=== PATIENT | male | born 1950 | race Caucasian/White ===

== ENCOUNTER 2020-01-31 15:07 | Inpatient (IN) | payer OTHER, MEDICARE ==
[~2020-01-31] VITALS: Ht 190.5 cm; Wt 118.5 kg
[2020-01-31] VITALS (120 sets, daily range): BP systolic 168; BP diastolic 101; PULSE 63; TEMP 97.7; O2SAT 92–98
[2020-01-31 15:34] LABS: BASO # 0.1 (0.0-0.2); BASO % 0.6 % (0.0-2.0); EOS # 0.2 (0.0-0.7); EOS % 2.8 % (0-4.0); GRAN # 4.6 (1.4-6.5); GRAN % 59.3 % (42.2-75.2); HEMATOCRIT 46.8 % (42.0-52.0); HEMOGLOBIN 15.7 g/dl (13.5-18.0); LYMPH # 2.1 (1.2-3.4); LYMPH % 27.2 % (20.0-51.0); MEAN CELL VOLUME 87 fl (80.0-100.0); MEAN CORPUSCULAR HEMOGLOBIN 29 pg (27.0-31.0); MEAN CORPUSCULAR HGB CONC 34 g/dl (33.0-37.0); MEAN PLATELET VOLUME 11.1 fl (7.4-10.4); MONO # 0.8 (0.1-0.6); MONO % 9.8 % (1.7-9.3); PLATELET COUNT 205 K/mm3 (130-400); RED BLOOD COUNT 5.41 M/mm3 (4.20-5.60); REDCELL DISTRIBUTION WIDTH-CV 13.9 % (11.5-14.5)
[2020-01-31 15:48] LABS: ALANINE AMINOTRANSFERASE 26 U/L (4-49); ALBUMIN 4.4 gm/dL (3.5-5.0); ALKALINE PHOSPHATASE 124 U/L (50-136); ANION GAP 8 mmol/L (7-16); AST,SGOT 32 U/L (15-37); BILIRUBIN,TOTAL 0.7 mg/dL (0.0-1.0); BLOOD UREA NITROGEN 20 mg/dL (9-20); CALCIUM 9.1 mg/dL (8.4-10.2); CARBON DIOXIDE 25 mmol/L (22-30); CHLORIDE 107 mmol/L (98-107); GLUCOSE 152 mg/dL (74-106); POTASSIUM 3.9 mmol/L (3.4-5.0); SODIUM 140 mmol/L (137-145); TOTAL PROTEIN 7.8 gm/dL (6.4-8.2)
[2020-01-31 15:50] LABS: C-REACTIVE PROTEIN < 0.5 mg/dL (0.0-0.9)
[2020-01-31 16:02] LABS: TROPONIN-I < 0.012 ng/mL (0.000-0.035)
--- NOTE | 2020-01-31 18:20 | NUR ---
Pt arrived to room via gurradha from [employer]. Pt alert and oreinted at time of arrival. BP lower and Cardene gtt stopped, see documenation from ER. BP on arrival 168/101 HR63, pt states that he is dizzy during transfer. Pt educated on use of call light at this time, states understadning. Oriented to room and surroundings at this time. Denies further needs.
[2020-01-31] MEDS ORDERED: TENORMIN100 MG PO (22:58)
[2020-01-31] MEDS ORDERED: HYTRIN10 M1 PO (22:59)
[2020-01-31] MEDS ORDERED: CATAPRES 0.1MG0.1 MG PO (22:59)
[2020-01-31] MEDS ORDERED: ZYLOPRIM 300MG300 MG PO (23:00)
[2020-01-31] MEDS ORDERED: ASPIRIN 32325 MG/TAB PO (23:00)
[2020-02-01] VITALS (377 sets, daily range): BP systolic 121–174; BP diastolic 61–104; PULSE 47–60; TEMP 97.7–98.5; O2SAT 91–99
[2020-02-01 05:46] LABS: BASO # 0.1 (0.0-0.2); BASO % 0.6 % (0.0-2.0); EOS # 0.2 (0.0-0.7); EOS % 1.8 % (0-4.0); GRAN # 6.6 (1.4-6.5); GRAN % 67.8 % (42.2-75.2); HEMATOCRIT 45.1 % (42.0-52.0); HEMOGLOBIN 15.1 g/dl (13.5-18.0); LYMPH # 1.9 (1.2-3.4); LYMPH % 19.7 % (20.0-51.0); MEAN CELL VOLUME 86 fl (80.0-100.0); MEAN CORPUSCULAR HEMOGLOBIN 29 pg (27.0-31.0); MEAN CORPUSCULAR HGB CONC 34 g/dl (33.0-37.0); MEAN PLATELET VOLUME 10.9 fl (7.4-10.4); MONO % 9.9 % (1.7-9.3); PLATELET COUNT 193 K/mm3 (130-400); RED BLOOD COUNT 5.23 M/mm3 (4.20-5.60); REDCELL DISTRIBUTION WIDTH-CV 14.1 % (11.5-14.5)
[2020-02-01 05:55] LABS: CALCIUM 8.9 mg/dL (8.4-10.2); CREATININE, serum 0.94 (0.66-1.25)
--- NOTE | 2020-02-01 13:22 | NUR ---
Chaplain holguin and offered spport with patient.
--- NOTE | 2020-02-01 17:16 | NUR ---
Recieved report from julio cesar NICHOLS. Patient oriented to new room. Completed a med rec and an assessment. Patient complained of dizziness when transferring from the wheelchair to the bed. Instructed patient to call if he needed to get up. is at bedside.
--- NOTE | 2020-02-01 18:51 | NUR ---
Patient did well with dinner, ready for for bed. will report off to night nurse.
[2020-02-02] VITALS: BP 158/90; PULSE 51; TEMP 97.8
[2020-02-02 04:00] VITALS: BP 183/87; PULSE 58; TEMP 97.8
--- NOTE | 2020-02-02 06:19 | NUR ---
RESTING QUIETLY/SLEEPING. HEART RATE HAS REMAINED IN 50-60's MOST OF THE NIGHT. NO PRN HYDRALAZINE REQUIRED. PT STATES HE STILL GETS A BIT DIZZY WHEN UP.
[2020-02-02 07:08] VITALS: BP 169/91; PULSE 50; TEMP 98.2
[2020-02-02 09:24] VITALS: BP 178/98
--- NOTE | 2020-02-02 09:24 | NUR ---
Orthostatic BPs obtained. Lying 178/98 P56. Sitting 176/72 P55. Standing 190/98 P67.
--- NOTE | 2020-02-02 09:30 | NUR ---
Patient alert and oriented, answers questions appropriately. See assessment. Blood pressures reviewed. Patient c/o vertigo with standing from lying or sitting position. Reviewed with patient to sit for up to one minute prior to standing. Offered SORAYA hose to patient, refused at this time. No c/o at this time.
--- NOTE | 2020-02-02 11:02 | NUR ---
SW met with patient to complete intake. Patient states that he lives with his [phone]. Patient states that he does not use DME and is independent with ADL's. Patient provides that his PCP is Dr. Henderson, [facility] and that he can afford his medication at this time. Patient provides that he does not have anyone listed as DPOA-HC and does not wish to appoint anyone at this time. His plan is to return to his home with his upon DC and does not have any concerns with doing so. [facility]SUF will continue to follow.
[2020-02-02 11:22] VITALS: BP 156/86; PULSE 50; TEMP 98.5
[2020-02-02] MEDS ORDERED: PRINIVIL20 MG PO (15:52)
--- NOTE | 2020-02-02 16:10 | NUR ---
Dr Taylor here to see patient.
--- NOTE | 2020-02-02 16:45 | NUR ---
Discharge instructions reviewed with patient, verbalized understanding. Discharged via wheelchair to auto/home with spouse at 1630.
== END 2020-02-02 16:30 | disposition home or self-care (01) | DRG 305 ==
LOC: COL.ER 15:07 → ICU 18:40 → SURG 02-01 16:23
PROVIDERS: Emergency Medicine; Nurse Practitioner Primary Care; ADMIT Internal Medicine
DX: I16.1 Hypertensive emergency (principal); I10 Essential (primary) hypertension; N40.0 Benign prostatic hyperplasia without lower urinary tract symptoms; R00.1 Bradycardia, unspecified; T44.7X5A Adverse effect of beta-adrenoreceptor antagonists, initial encounter
CPT/HCPCS: 99222-AI; 99239; A9585; J2060; J2405; J7030; J7050

== ENCOUNTER 2020-12-25 21:10 | Emergency (ER) | payer MEDICARE, OTHER ==
[~2020-12-25] VITALS: Ht 190.5 cm; Wt 113.6 kg
[~2020-12-25 21:10] MED LIST: ASPIRIN 32325 MG/TAB PO; CATAPRES 0.1MG0.1 MG PO; HYTRIN10 M1 PO; PRINIVIL20 MG PO; TENORMIN100 MG PO; ZYLOPRIM 300MG300 MG PO
[2020-12-25 21:18] VITALS: TEMP 99
[2020-12-25 21:51] LABS: GRAN # 5.6 (1.4-6.5); GRAN % 89.4 % (42.2-75.2); HEMATOCRIT 41.6 % (42.0-52.0); HEMOGLOBIN 14.4 g/dl (13.5-18.0); LYMPH # 0.3 (1.2-3.4); MEAN CELL VOLUME 83 fl (80.0-100.0); MEAN CORPUSCULAR HEMOGLOBIN 29 pg (27.0-31.0); MEAN CORPUSCULAR HGB CONC 35 g/dl (33.0-37.0); MEAN PLATELET VOLUME 10.4 fl (7.4-10.4); MONO # 0.4 (0.1-0.6); MONO % 6.1 % (1.7-9.3); PLATELET COUNT 132 K/mm3 (130-400); RED BLOOD COUNT 5.01 M/mm3 (4.20-5.60); REDCELL DISTRIBUTION WIDTH-CV 13.4 % (11.5-14.5)
[2020-12-25 22:01] LABS: ALBUMIN 3.5 gm/dL (3.5-5.0); BILIRUBIN,TOTAL 0.6 mg/dL (0.0-1.0); CREATININE, serum 0.91 (0.66-1.25); POTASSIUM 4.2 mmol/L (3.4-5.0); TOTAL PROTEIN 6.7 gm/dL (6.4-8.2)
[2020-12-25 23:15] LABS: COLLECTION METHOD CLEAN CATCH
[2020-12-25 23:20] LABS: MUCOUS Present /lpf; PH 5 (5-8); SQUAMOUS EPITHELIAL None Seen /hpf; URINE APPEARANCE Hazy; URINE BACTERIA None Seen /hpf; URINE BILIRUBIN Negative (NEGATIVE); URINE BLOOD Negative (NEGATIVE); URINE COLOR Yellow; URINE GLUCOSE Negative (NEGATIVE); URINE KETONE Trace (NEGATIVE); URINE LEUKOCYTE ESTERASE Negative (NEGATIVE); URINE NITRATE Negative (NEGATIVE); URINE PROTEIN(semi-quant) 2+ (NEGATIVE); URINE UROBILINOGEN Negative (NEGATIVE)
[2020-12-25] MEDS ORDERED: ZOFRAN ODT4 MG PO (23:27)
[2020-12-25 23:48] VITALS: BP 159/79; PULSE 77
== END 2020-12-25 23:59 | disposition home or self-care (01) ==
LOC: COL.ER 21:10
PROVIDERS: Emergency Medicine
DX: E86.0 Dehydration (principal); E87.1 Hypo-osmolality and hyponatremia; I10 Essential (primary) hypertension; N40.0 Benign prostatic hyperplasia without lower urinary tract symptoms; Z79.899 Other long term (current) drug therapy
CPT/HCPCS: J7030; J7120